=== PATIENT | male | born 1980 | race Caucasian/White ===

== ENCOUNTER 2019-09-18 09:49 | Inpatient (IN) | payer MEDICARE, MEDICAID, SELFPAY ==
[2019-09-18 10:27] VITALS: BP 121/80; PULSE 78; RESP 16; TEMP 36.7; O2SAT 95; BMI 27.4
--- NOTE | 2019-09-18 10:35 | W.ED.PSYCH ---
HPI - Psych General: Chief Complaint: Psychiatric Symptoms Stated Complaint: MHE Time Seen by Provider: 09/18/19 10:35 Source: patient Mode of arrival: ambulatory Limitations: no limitations History of Present Illness: HPI Narrative: Patient is a 38-year-old male who presents to ED today seeking psychiatric evaluation. Patient tells me he has a history of schizophrenia. He has been out of his medications including Seroquel, Haldol, and Invega for the past month. Patient was living in [place] for short amount of time where he had a psychiatrist prescribing those medications. He states he recently moved to [place] so he could live on a farm and be isolated as he is very paranoid and does not do well in large cities. Patient tells me even on the farm he is having paranoia and believing that the people he is living with are trying to hurt him. Patient tells me he is having thoughts of wanting to harm them stating I feel like I need to get to them before they get to me . Patient tells me he is fearful of these thoughts as he is normally very proactive on his mental health. He is also reporting auditory hallucinations. States these were normally fairly well controlled on Seroquel. Patient states his thoughts are out of control . He is not having homicidal ideations. He denies drug use apart from occasional marijuana use. No alcohol use. Associated symptoms: Reports auditory hallucinations and homicidal ideation; Deny visual hallucinations or suicidal ideation Review of Systems Const: Denies: fever(s) or chills Card: Denies: chest pain, palpitations, lightheadedness or syncope Resp: Denies: dyspnea GI: Denies: abdominal pain, nausea, vomiting or diarrhea Skin/Breast: Denies: rash Neuro: Denies: headache(s) Psych: Reports: anxiety, paranoia, auditory hallucinations and homicidal ideation; Denies: visual hallucinations or suicidal ideation Physical Exam Const: COMMON NORMALS: no acute distress, patient oriented x3, alert and well nourished GENERAL APPEARANCE: cooperative and well kempt Resp: COMMON NORMALS: normal respiratory effort and clear to auscultation bilaterally AUSCULTATION: clear to auscultation bilaterally Cardio: COMMON NORMALS: regular rate and regular rhythm RATE: regular rate RHYTHM: regular rhythm Neuro: COMMON NORMALS: patient oriented x3 SENSORIUM/ORIENTATION: Yes alert Psych: COMMON NORMALS: mental status grossly normal, Normal thought process present, cooperative, normal affect, speech normal, activity/motor behavior normal and denies suicidal ideation APPEARANCE: Yes well kempt ATTITUDE: Yes calm ACTIVITY/MOTOR BEHAVIOR: Yes appropriate eye contact and No psychomotor agitation SPEECH: Yes normal speech MOOD & AFFECT: Yes euthymic mood THOUGHT PROCESS: Normal thought process present ATTENTION/CONCENTRATION: Yes attention grossly intact and Yes concentration grossly intact MEMORY/COGNITION: Yes memory grossly intact and Yes cognition grossly intact INSIGHT: Good insight present (Psych) JUDGEMENT: Good judgement present (Psych) MDM - Psych Lab Data: Labs: Lab Results 09/18/19 09/18/19 09/18/19 Range/Units 10:44 11:32 11:32 WBC 5.6 (4.0-10.0) 10^3/ uL RBC 4.66 (4.1-5.3) 10^6/u L Hgb 14.7 (11.7-16.6) g/dL Hct 42.3 (42.0-52.0) % MCV 90.8 (80-94) fL MCH 31.5 (28.0-34.0) pg MCHC 34.8 (30.0-36.0) g/dL RDW 14.2 (12.1-15.1) % Plt Count 213 (130-400) 10^3/c mm MPV 10.0 (7.4-10.4) fL Neut % (Auto) 62.4 % Lymph % (Auto) 30.0 % [place] % (Auto) 6.3 % Eos % (Auto) 0.9 % Baso % (Auto) 0.2 % Neut # (Auto) 3.50 (1.8-7.7) 10^3/u L Lymph # (Auto) 1.7 (0.8-4.8) 10^3/u L [place] # (Auto) 0.4 (0.2-0.9) 10^3/u L Eos # (Auto) 0.1 (0.0-0.8) 10^3/u L Baso # (Auto) 0.0 (0.0-0.1) 10^3/u L Nucleated RBC % (a uto) 0 % Nucleated RBCs # 0.0 /100WBC Sodium 139 (136-145) mmol/L Potassium 4.0 (3.5-5.1) mmol/L Chloride 106 (98-107) mmol/L Carbon Dioxide 22 (22-29) mmol/L Anion Gap 15.0 (5-19) BUN 7 (6-20) mg/dL Creatinine 0.8 (0.7-1.2) mg/dL GFR Calculation 107.1 (90-130) mL/min Glucose 111 (65-115) mg/dL Calculated Osmolal ity 285 (285-295) mOsm/k g Calcium 9.7 (8.5-10.5) mg/dL Total Bilirubin 0.3 (0.15-1.2) mg/dL AST 18 (0-40) U/L ALT 17 (0-41) U/L Alkaline Phosphata se 72 (40-130) IU/L Total Protein 6.8 (6.6-8.7) g/dL Albumin 4.5 (3.5-5.2) g/dL Globulin 2.3 (1.3-4.6) g/dL Salicylates < 0.3 L (3-10) mg/dL Urine Opiates Scre en Negative (Negative) ng/mL Acetaminophen < 5.0 L (10-30) ug/mL Ur Barbiturates Sc reen Negative (Negative) ng/mL Ur Phencyclidine S crn Negative (Negative) ng/mL Ur Amphetamines Sc reen Negative (Negative) ng/mL U Benzodiazepines Scrn Negative (Negative) ng/mL Urine Cocaine Scre en Negative (Negative) ng/mL U Marijuana (THC) Screen Positive H (Negative) ng/mL Ethyl Alcohol < 10 (0-10) mg/dL Discharge Plan Discharge Patient Disposition: Admitted As Inpatient Clinical Impression: Chronic schizophrenia, Paranoia Condition: Stable Prescriptions: No Action No Known Home Medications RF: 0 Coding Level of Care Code ED Engineering Instructor for Chg Fwd Exam Expanded Problem Focused
[2019-09-18 11:16] LABS: Amphetamines Screen Urine Negative (Negative); Barbiturates Screen Urine Negative (Negative); Benzodiazepines Screen Urine Negative (Negative); Cocaine Screen Urine Negative (Negative); Opiate Screen Urine Negative (Negative); PCP Screen Urine Negative (Negative); THC Screen Urine Positive (Negative)
[2019-09-18 11:37] LABS: Basophils % 0.2 %; Eosinophils # 0.1 10^3/uL (0.0-0.8); Eosinophils % 0.9 %; Hematocrit 42.3 % (42.0-52.0); Hemoglobin 14.7 g/dL (11.7-16.6); Lymphocytes # 1.7 10^3/uL (0.8-4.8); Mean Corpuscular HGB Conc 34.8 g/dL (30.0-36.0); Mean Corpuscular Hemoglobin 31.5 pg (28.0-34.0); Mean Corpuscular Volume 90.8 fL (80-94); Monocytes # 0.4 10^3/uL (0.2-0.9); Monocytes % 6.3 %; Neutrophils % 62.4 %; Nucleated Red Blood Cells % 0 %; Platelet Count 213 10^3/cmm (130-400); Red Blood Count 4.66 10^6/uL (4.1-5.3); Red Cell Distribution Width 14.2 % (12.1-15.1); White Blood Count 5.6 10^3/uL (4.0-10.0)
[2019-09-18 11:58] LABS: Alanine Aminotransferase 17 U/L (0-41); Albumin Level 4.5 g/dL (3.5-5.2); Alkaline Phosphatase 72 IU/L (40-130); Aspartate Amino Transferase 18 U/L (0-40); Blood Urea Nitrogen 7 mg/dL (6-20); Calcium 9.7 mg/dL (8.5-10.5); Carbon Dioxide 22 mmol/L (22-29); Chloride 106 mmol/L (98-107); Globulin 2.3 g/dL (1.3-4.6); Glomerular Filtration Rate 107.1 mL/min (90-130); Glucose 111 mg/dL (65-115); Osmolality Calculated 285 mOsm/kg (285-295); Sodium 139 mmol/L (136-145); Total Bilirubin 0.3 mg/dL (0.15-1.2); Total Protein 6.8 g/dL (6.6-8.7)
[2019-09-18 12:10] LABS: Acetaminophen < 5.0 ug/mL (10-30); Alcohol Level < 10 mg/dL (0-10); Salicylate < 0.3 mg/dL (3-10)
--- NOTE | 2019-09-18 13:45 | PC.NURSE ---
Patient has a left artificial leg and it has as reddened area.
[2019-09-18 13:51] VITALS: BP 118/76; PULSE 63; RESP 18; TEMP 36.8; O2SAT 98
--- NOTE | 2019-09-18 13:58 | PC.NURSE ---
\patient has phantom pains in his left leg.
--- NOTE | 2019-09-18 14:09 | PC.NURSE ---
Very painful to walk on his prosthetic. He has irritation to the top medial portion of knee area that is rubbing
[2019-09-18 14:22] VITALS: BP 124/82; PULSE 75; RESP 17; TEMP 37.1; O2SAT 97
--- NOTE | 2019-09-18 14:40 | PC.NURSE ---
applied ABD to end of stump to relieve pressure and wick up moisture from knee area.
[2019-09-18] MEDS: nicotine 2 mg Gum BUCCAL (15:00)
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
[2019-09-18] MEDS: quetiapine 25 mg Tablet PO (16:37)
[2019-09-18] MEDS: LORazepam 0.5 mg Tablet PO (17:32)
[2019-09-18] MEDS: gabapentin 300 mg Capsule PO (21:14)
[2019-09-18 22:00] VITALS: RESP 16
[2019-09-19 06:00] VITALS: BP 85/47; PULSE 59; RESP 17; TEMP 36.8; O2SAT 97
[2019-09-19] MEDS: quetiapine 25 mg Tablet PO (08:13)
[2019-09-19] MEDS: LORazepam 0.5 mg Tablet PO ×2 (08:13→17:09)
[2019-09-19] MEDS: nicotine 2 mg Gum BUCCAL ×3 (08:13→17:09)
[2019-09-19] MEDS: gabapentin 300 mg Capsule PO ×3 (08:13→20:05)
--- NOTE | 2019-09-19 08:13 | PC.NURSE ---
PRN SEROQUEL 25 MG GIVEN PO PER PT C/O STATED ANXIETY
[2019-09-19 13:41] VITALS: BP 91/55; PULSE 68; RESP 18; TEMP 36.9; O2SAT 95
--- NOTE | 2019-09-19 16:05 | P.PN_ITS ---
Subjective NPU Subjective: Interval history: I am doing all right. I think the medication is already helping. I am still working on a place to go. Mental Status Exam MSE Comments: Mental Status Exam: The patient is alert interpersonally engaged male appearing approximately his stated age. His facial hair is well groomed. His head is shaved in a [place]. He has a full arm sleeve tattoo on the left side. He is believed to be a reliable informant to the best of his ability is information provided is internally consistent and consistent with that in the chart. However it is noted that we have no independent sources of information to compare against the story that he tells. Appearance: hygiene is fair; no gross neurological deficits., gait is unremarkable; AIMS=0 Speech: Speech is of normal rate and rhythm and easily understood. Thought processes: Thought processes are abstract. Judgment is adequate for safety. Associations: intact Psychotic processes: There is no indication of guarding or paranoia. There is no attention to the internal stimuli. Auditory and visual hallucinations are denied. Judgment: Insight is fair. Problem solving skills are adequate for safety. Orientation: The patient is oriented to person, place time and situation. Memory: no deficits noted in immediate, intermediate, or remote spheres. Attention: The patient is alert and interpersonally engaged. Language: Verbalizations are coherent. Fund of knowledge: Fund of knowledge is adequate. Affect/Mood: Affect is consistent with a euthymic mood. He denied suicidal ideation Affective range appropriate. Psychosis: perception unimpaired except through cognitive distortion; reality testing intact. Cognition: Level of Consciousness: Awake, Alert, Appropriate and Follows Commands Patient Cognition Impaired: No Ability to Follow Directions: Good Patient Orientation (long list): Person, Place and Time Comprehension Ability: Understands Concepts Hallucination Type: None Delusion Description: Not Present Thought Process: Appropriate Affect: Affect Description: Calm Depressive Symptoms: Increased Anxiety Behavior: Patient Behavior: Cooperative Speech Pattern: Clear Vitals/I&O/Wt Last Vital Signs Temp 98.5 F 09/19/19 13:41 Pulse 68 09/19/19 13:41 Resp 18 09/19/19 13:41 BP 91/55 09/19/19 13:41 Pulse Ox 95 09/19/19 13:41 Weight last 48 hrs Weight 74.843 kg Data NPU : 09/18/19 11:32 09/18/19 11:32 A&P Additional A&P Information Diagnoses: Schizoaffective disorder?paranoid type Assessment: Patient did well to come in for services before his psychosis worsened considerably. It is apparent that the primary goal of the patient was to get restarted back on his medications that had previously been effective. Treatment plan: Due to the psychiatric conditions and treatment listed in the Assessment and Plan - the patient requires continued hospitalization. Will provide a safe and therapeutic environment for patient.. Will continue inpatient treatment to allow for medication adjustment and monitoring. Will continue q15 min safety checks. Hospital day #1: Will restart Seroquel 400 mg at bedtime and gabapentin 300 mg 3 times daily and titrate up from there. He will be given lorazepam as needed and Seroquel 25 mg as needed anxiety. Lorazepam will not be prescribed on discharge. And monitor for medication side effects. The patient is a voluntary admission and there is no indication of imminent danger to self or others at this time. Hospital day #2: I am doing all right. I think the medication is already helping. I am still working on a place to go. Plan: No changes at this time. Monitor patient's mood, sleep, appetite, and behavior closely. Encourage patient to participate in individual and group therapeutic sessions on the [place]. Estimated length of stay 5 days Involuntary Hold Information 96 Hour Hold: 96 Hour Involuntary Admission: No Attestations NPU Medical Necessity Statement*: Patient will remain in the hospital another 2-4 nights for assessment of medication efficacy and tolerability. Coding Level of Care Code Acute Supervisor Drying And Softening for Champ Burden
[2019-09-19 22:00] VITALS: BP 106/62; PULSE 58; RESP 17; TEMP 36.9; O2SAT 98
[2019-09-20] MEDS: acetaminophen 325 mg Tablet 650 MG PO (00:12)
[2019-09-20] MEDS: quetiapine 25 mg Tablet PO ×2 (04:58→11:39)
[2019-09-20] MEDS: nicotine 2 mg Gum BUCCAL ×3 (05:00→17:41)
[2019-09-20 06:00] VITALS: BP 96/45; PULSE 90; RESP 17; TEMP 36.8; O2SAT 97
[2019-09-20] MEDS: gabapentin 300 mg Capsule PO ×3 (08:18→22:36)
[2019-09-20] MEDS: LORazepam 0.5 mg Tablet PO ×2 (08:18→16:53)
--- NOTE | 2019-09-20 08:30 | PM.NPN ---
Subjective NPU Subjective: Interval history: I am having a lot of problems with these hallucinations. I hear voices. I woke up last night in the middle of the night in a panic attack from the voices. I had to go up and take another as needed. Mental Status Exam MSE Comments: Mental Status Exam: The patient is alert interpersonally engaged male appearing approximately his stated age. His facial hair is well groomed. His head is shaved in a [place]. He has a full arm sleeve tattoo on the left side. He is believed to be a reliable informant to the best of his ability is information provided is internally consistent and consistent with that in the chart. However it is noted that we have no independent sources of information to compare against the story that he tells. Appearance: hygiene is fair; no gross neurological deficits., gait is unremarkable; AIMS=0 Speech: Speech is of normal rate and rhythm and easily understood. Thought processes: Thought processes are abstract. Judgment is adequate for safety. Associations: intact Psychotic processes: There is no indication of guarding or paranoia. There is no attention to the internal stimuli. Auditory and visual hallucinations are denied. Judgment: Insight is fair. Problem solving skills are adequate for safety. Orientation: The patient is oriented to person, place time and situation. Memory: no deficits noted in immediate, intermediate, or remote spheres. Attention: The patient is alert and interpersonally engaged. Language: Verbalizations are coherent. Fund of knowledge: Fund of knowledge is adequate. Affect/Mood: Affect is consistent with a euthymic mood. He denied suicidal ideation Affective range appropriate. Psychosis: perception unimpaired except through cognitive distortion; reality testing intact. Cognition: Patient Appearance: Appropriate Level of Consciousness: Awake, Alert, Appropriate and Follows Commands Patient Cognition Impaired: No Ability to Follow Directions: Good Patient Orientation (long list): Person, Place and Time Comprehension Ability: Understands Concepts Hallucination Type: None Delusion Description: Not Present Thought Process: Appropriate Affect: Affect Description: Calm Depressive Symptoms: Increased Anxiety Behavior: Patient Behavior: Cooperative Speech Pattern: Clear Vitals/I&O/Wt Last Vital Signs Temp 98.2 F 09/20/19 06:00 Pulse 90 09/20/19 06:00 Resp 17 09/20/19 06:00 BP 96/45 09/20/19 06:00 Pulse Ox 97 09/20/19 06:00 Weight last 48 hrs Weight 74.843 kg Data NPU : 09/18/19 11:32 09/18/19 11:32 A&P Additional A&P Information Diagnoses: Schizoaffective disorder?paranoid type Assessment: Patient did well to come in for services before his psychosis worsened considerably. It is apparent that the primary goal of the patient was to get restarted back on his medications that had previously been effective. Treatment plan: Due to the psychiatric conditions and treatment listed in the Assessment and Plan - the patient requires continued hospitalization. Will provide a safe and therapeutic environment for patient.. Will continue inpatient treatment to allow for medication adjustment and monitoring. Will continue q15 min safety checks. Hospital day #1: Will restart Seroquel 400 mg at bedtime and gabapentin 300 mg 3 times daily and titrate up from there. He will be given lorazepam as needed and Seroquel 25 mg as needed anxiety. Lorazepam will not be prescribed on discharge. And monitor for medication side effects. The patient is a voluntary admission and there is no indication of imminent danger to self or others at this time. Hospital day #2: I am doing all right. I think the medication is already helping. I am still working on a place to go. Plan: No changes at this time. Hospital day #3: Patient continues to request as needed medication for auditory hallucinations. Plan: Increase Seroquel at bedtime from 400 mg to 600 mg. He is currently awaiting placement though it is largely his responsibility to find a place to go. He acknowledges that it will be another 2 days until social work returns that can help him with that. Monitor patient's mood, sleep, appetite, and behavior closely. Encourage patient to participate in individual and group therapeutic sessions on the [place]. Estimated length of stay 5 days Involuntary Hold Information 96 Hour Hold: 96 Hour Involuntary Admission: No Attestations NPU Medical Necessity Statement*: Patient will remain in the hospital another 2-4 nights for assessment of medication efficacy and tolerability. Coding Level of Care Code Acute Suction Dredge Dumping Supervisor for Champ Burden
--- NOTE | 2019-09-20 11:40 | PC.NURSE ---
Addendum entered by Georgia Casas LPN 09/20/19 13:54: prn med effective no further c/o anxiety, pt watching tv in day room Original Note: PRN SEROQUEL 25 MG GIVEN PO PER PT C/O ANXIETY. PT REQUESTS MED OFTEN. WILL CONT TO MONITOR
[2019-09-20 13:32] VITALS: BP 101/66; PULSE 89; TEMP 36.9
[2019-09-20 22:00] VITALS: BP 122/71; PULSE 65; RESP 20; TEMP 36.9; O2SAT 97
[2019-09-20] MEDS: quetiapine 300 mg Tablet 600 MG PO (22:36)
[2019-09-21] MEDS: nicotine 2 mg Gum BUCCAL ×3 (05:57→21:15)
[2019-09-21] MEDS: quetiapine 25 mg Tablet PO ×2 (05:57→14:53)
[2019-09-21 06:00] VITALS: BP 106/70; PULSE 70; RESP 20; TEMP 36.7; O2SAT 96
[2019-09-21] MEDS: gabapentin 300 mg Capsule PO ×3 (09:02→21:14)
[2019-09-21] MEDS: LORazepam 0.5 mg Tablet PO ×2 (09:02→16:59)
[2019-09-21 14:00] VITALS: BP 102/68; PULSE 18; RESP 18; TEMP 37.2; O2SAT 98
--- NOTE | 2019-09-21 14:53 | PC.NURSE ---
PRN SEROQUEL SEROQUEL 25MG PO PER PATIENT C/O ANXIETY. WILL CONTINUE TO MONITOR FOR MEDICATION EFFECTIVENESS.
--- NOTE | 2019-09-21 16:00 | PC.NURSE ---
PRN SEROQUEL FOLLOW UP MEDICATION EFFECTIVE. NO FURTHER C/O ANXIETY.
--- NOTE | 2019-09-21 16:36 | P.PN_ITS ---
Subjective NPU Subjective: Interval history: The patient is feeling calm, comfortable and affirms that his medications are having a good effect. He is looking forward to the correction. He thinks he is [facility] [place] [facility]. Medications: Reviewed: Yes Medication Review Details: Current Medications Acetaminophen (Tylenol) 650 mg PO Q4H PRN PRN Reason: MILD PAIN Last Admin: 09/20/19 00:12 Dose: 650 mg Documented by: Benztropine Mesylate (Cogentin) 1 mg PO BID PRN PRN Reason: Mild Extrapyramidal symptoms Camphor/Menthol/Phenol (Blistex) 1 applic TOPICAL Q1H PRN PRN Reason: DRYNESS Diphenhydramine HCl (Benadryl) 50 mg IM ONCE PRN PRN Reason: Severe Extrapyramidal Symptoms Diphenhydramine HCl (Benadryl) 50 mg IM Q4H PRN PRN Reason: Severe Aggression Gabapentin (Neurontin) 300 mg PO TID [facility] Last Admin: 09/21/19 14:53 Dose: 300 mg Documented by: Haloperidol (Haldol) 5 mg PO Q4H PRN PRN Reason: AGITATION Haloperidol Lactate (Haldol Inj) 5 mg IM Q4H PRN PRN Reason: Severe Aggression Hydroxyzine Pamoate (Vistaril) 50 mg PO Q6H PRN PRN Reason: ANXIETY Loperamide HCl (Imodium Capsule) 2 mg PO Q6H PRN PRN Reason: DIARRHEA Lorazepam (Ativan) 2 mg IM Q4H PRN PRN Reason: Severe Aggression Lorazepam (Ativan) 0.5 mg PO BID [facility] Last Admin: 09/21/19 09:02 Dose: 0.5 mg Documented by: Nicotine (Nicoderm 21 Mg Patch) 1 patch TRANSDERMA DAILY PRN PRN Reason: NICOTINE WITHDRAWAL Nicotine Polacrilex (Nicorette) 2 mg BUCCAL Q2H PRN PRN Reason: NICOTINE WITHDRAWAL Last Admin: 09/21/19 14:53 Dose: 2 mg Documented by: Olanzapine (Zyprexa Zydis) 5 mg PO Q4H PRN PRN Reason: Agitation/Psychosis Ondansetron HCl (Zofran) 4 mg PO Q6H PRN PRN Reason: NAUSEA AND VOMITING Quetiapine Fumarate (Seroquel) 25 mg PO Q6H PRN PRN Reason: ANXIETY Last Admin: 09/21/19 14:53 Dose: 25 mg Documented by: Quetiapine Fumarate (Seroquel) 600 mg PO BEDTIME ELICIA Last Admin: 09/20/19 22:36 Dose: 600 mg Documented by: Trazodone HCl (Desyrel) 50 mg PO BEDTIME PRN PRN Reason: SLEEP Mental Status Exam MSE Comments: The patient wheels in, clean and neat, with his hair combed back. Mood is cheerful and affect is appropriate. Thought processes are integrated and free of any racing, blocking or looseness of association. Speech is of normal rate and volume, without dysarthria, aprosody or pressure. Cognitive functions appear to be intact; he is clearly able to plan for the future. Insight and judgment are good. He denies suicidal or homicidal ideation, plan or intent. Vitals/I&O/Wt Last Vital Signs Temp 98.9 F 09/21/19 14:00 Pulse 18 L 09/21/19 14:00 Resp 18 09/21/19 14:00 BP 102/68 09/21/19 14:00 Pulse Ox 98 09/21/19 14:00 Weight last 48 hrs Weight 173 lb 6.4 oz Physical Exam Narrative: EXAM NARRATIVE: Const: COMMON NORMALS: no acute distress, patient oriented x3, alert and well nourished GENERAL APPEARANCE: cooperative and well kempt Resp: COMMON NORMALS: normal respiratory effort and clear to auscultation bilaterally AUSCULTATION: clear to auscultation bilaterally Cardio: COMMON NORMALS: regular rate and regular rhythm RATE: regular rate RHYTHM: regular rhythm Neuro: COMMON NORMALS: patient oriented x3 SENSORIUM/ORIENTATION: Yes alert Psych: COMMON NORMALS: mental status grossly normal, Normal thought process present, cooperative, normal affect, speech normal, activity/motor behavior normal and denies suicidal ideation APPEARANCE: Yes well kempt ATTITUDE: Yes calm ACTIVITY/MOTOR BEHAVIOR: Yes appropriate eye contact and No psychomotor agitation SPEECH: Yes normal speech MOOD & AFFECT: Yes euthymic mood THOUGHT PROCESS: Normal thought process present ATTENTION/CONCENTRATION: Yes attention grossly intact and Yes concentration grossly intact MEMORY/COGNITION: Yes memory grossly intact and Yes cognition grossly intact INSIGHT: Good insight present (Psych) JUDGEMENT: Good judgement present (Psych) Data NPU : 09/18/19 11:32 09/18/19 11:32 A&P Assessment and plan (1) Paranoia: Now that the patient is back on his meds, the paranoia has faded. Status: Acute (2) Chronic schizophrenia: With medication the patient is difficult to diagnose as schizophrenic. Status: Acute Involuntary Hold Information 96 Hour Hold: 96 Hour Involuntary Admission: No Attestations NPU Medical Necessity Statement*: I anticipate 2-3 midnights additional hospitalization Time Spent in Patient Care: Greater than 35 minutes (>than 50% of time spent in counselling and/or direct pt care on unit) . 45 minutes Coding Level of Care Code Acute Mortgage Loan Processor for Champ Burden Diagnoses Paranoia F22 Chronic schizophrenia F20.9
[2019-09-21] MEDS: quetiapine 300 mg Tablet 600 MG PO (21:14)
[2019-09-21 22:00] VITALS: BP 99/56; PULSE 59; RESP 20; TEMP 37.1; O2SAT 96
[2019-09-22 06:00] VITALS: BP 103/64; PULSE 80; RESP 20; TEMP 36.6; O2SAT 97
[2019-09-22] MEDS: acetaminophen 325 mg Tablet 650 MG PO ×2 (06:08→13:38)
[2019-09-22] MEDS: quetiapine 25 mg Tablet PO (06:08)
[2019-09-22] MEDS: nicotine 2 mg Gum BUCCAL ×4 (06:08→17:13)
--- NOTE | 2019-09-22 07:01 | PC.NURSE ---
PRN SEROQUEL ADMINISTERED SEROQUEL 25 MG PO FOR PT C/O INCREASING ANXIETY. WILL MONITOR FOR MEDICATION EFFECTIVENESS.
[2019-09-22] MEDS: LORazepam 0.5 mg Tablet PO ×2 (08:27→17:09)
[2019-09-22] MEDS: gabapentin 300 mg Capsule PO ×3 (08:27→21:19)
--- NOTE | 2019-09-22 09:52 | P.PN_ITS ---
Subjective NPU Subjective: Interval history: The patient says he feels much calmer now. He is pending establishment of a place to live. He cannot go out on the streets. He has however Mental Status Exam MSE Comments: This is a 38-year-old male who presents at his stated age. Mood is anxious but affect is appropriate to his mood. Thought processes are integrated and free of any racing, blocking or looseness of association. There is no evidence of psychosis, such as but not limited to hallucinations, delusions or ideas of reference. Speech is of normal rate and volume, without dysarthria, aprosody or pressure. Cognitive functions appear to be intact and sufficient to life in a mcc. Insight and judgment is intact. He denies suicidal or homicidal ideation, plan or intent. Vitals/I&O/Wt Last Vital Signs Temp 97.8 F 09/22/19 06:00 Pulse 80 09/22/19 06:00 Resp 20 H 09/22/19 06:00 BP 103/64 09/22/19 06:00 Pulse Ox 97 09/22/19 06:00 Weight last 48 hrs Weight 173 lb 6.4 oz Physical Exam 2 Narrative: EXAM NARRATIVE: Const: COMMON NORMALS: no acute distress, patient oriented x3, alert and well nourished GENERAL APPEARANCE: cooperative and well kempt Resp: COMMON NORMALS: normal respiratory effort and clear to auscultation bilaterally AUSCULTATION: clear to auscultation bilaterally Cardio: COMMON NORMALS: regular rate and regular rhythm RATE: regular rate RHYTHM: regular rhythm Neuro: COMMON NORMALS: patient oriented x3 SENSORIUM/ORIENTATION: Yes alert Psych: COMMON NORMALS: mental status grossly normal, Normal thought process present, cooperative, normal affect, speech normal, activity/motor behavior normal and denies suicidal ideation APPEARANCE: Yes well kempt ATTITUDE: Yes calm ACTIVITY/MOTOR BEHAVIOR: Yes appropriate eye contact and No psychomotor agitation SPEECH: Yes normal speech MOOD & AFFECT: Yes euthymic mood THOUGHT PROCESS: Normal thought process present ATTENTION/CONCENTRATION: Yes attention grossly intact and Yes concentration grossly intact MEMORY/COGNITION: Yes memory grossly intact and Yes cognition grossly intact INSIGHT: Good insight present (Psych) JUDGEMENT: Good judgement present (Psych) Data NPU : 09/18/19 11:32 09/18/19 11:32 A&P Assessment and plan (1) Chronic schizophrenia: The patient is sufficiently stabilized that he can be discharged safely to a group present as soon as a slot can be found. Status: Acute Involuntary Hold Information 96 Hour Hold: 96 Hour Involuntary Admission: No Attestations NPU Medical Necessity Statement*: I anticipate 2-3 midnights additional Time Spent in Patient Care: Greater than 35 minutes (>than 50% of time spent in counselling and/or direct pt care on unit) . 45 minutes Coding Level of Care Code Acute Blocker And Cutter Contact Lens for Champ Burden Diagnoses Chronic schizophrenia F20.9
[2019-09-22 14:00] VITALS: BP 107/71; PULSE 74; RESP 20; TEMP 36.8; O2SAT 97
[2019-09-22] MEDS: calcium carbonate 500 mg Chew Tablet PO (17:09)
--- NOTE | 2019-09-22 17:15 | PC.SOCIAL ---
important message was provided
[2019-09-22 21:04] VITALS: BP 96/53; PULSE 75; RESP 13; TEMP 36.8; O2SAT 97
[2019-09-22] MEDS: quetiapine 300 mg Tablet 600 MG PO (21:19)
[2019-09-23] MEDS: nicotine 2 mg Gum BUCCAL ×5 (03:37→21:47)
[2019-09-23] MEDS: quetiapine 25 mg Tablet PO ×2 (03:37→12:15)
--- NOTE | 2019-09-23 03:41 | PC.NURSE ---
PRN SEROQUEL PT REQUESTING ANXIETY MEDICATION, SEROQUEL 25MG PO ADMINISTERED. WILL MONITOR FOR MEDICATION EFFECTIVENESS.
[2019-09-23 06:00] VITALS: BP 102/66; PULSE 70; RESP 14; TEMP 36.7; O2SAT 95
[2019-09-23] MEDS: LORazepam 0.5 mg Tablet PO ×2 (08:34→16:55)
[2019-09-23] MEDS: gabapentin 300 mg Capsule PO ×3 (08:34→21:47)
--- NOTE | 2019-09-23 12:15 | PC.NURSE ---
Addendum entered by Georgia Casas LPN 09/23/19 14:20: prn med effective no further c/o anxiety Original Note: PRN SEROQUEL 25 MG GIVEN PO PER PT C/O STATED ANXIETY. NO OUTWARD S/S OF ANXIETY NOTED. MOOD IS CALM. WILL CONT TO MONITOR
[2019-09-23 13:49] VITALS: BP 110/69; PULSE 81; RESP 18; TEMP 37.2; O2SAT 98
--- NOTE | 2019-09-23 14:01 | PM.NPN ---
Subjective NPU Subjective: Interval history: Mr. Brandon is feeling better. He is got his prosthesis on his able to walk. I have consulted with the nursing staff and the landscape architect and planner for this patient. She has paperwork into a local [facility] and is awaiting a response from the staffing administrator, who unfortunately, especially for her, is at the dentist office. We received a reply from the facility and I will accept him. We can undertake to transfer the patient to this facility. Vitals/I&O/Wt Last Vital Signs Temp 98.9 F 09/23/19 13:49 Pulse 81 09/23/19 13:49 Resp 18 09/23/19 13:49 BP 110/69 09/23/19 13:49 Pulse Ox 98 09/23/19 13:49 Data NPU : 09/18/19 11:32 09/18/19 11:32 Involuntary Hold Information 96 Hour Hold: 96 Hour Involuntary Admission: No Coding Level of Care Code Acute Organic Extractions Technician for Champ Burden
--- NOTE | 2019-09-23 14:15 | PM.NDC ---
Diagnoses at Discharge Discharge Diagnosis (1) Chronic schizophrenia: Status: Acute Problem details: Patient is presently asymptomatic. Reason for Visit Reason for Visit: MHE Hospital Course Hospital Course The patient has responded well to pharmacotherapy and millieu. [facility]. The patient is stabilized and awaiting placement. There was a review phone call yesterday and, not surprisingly his care was disallowed. Involuntary Hold Information 96 Hour Hold: 96 Hour Involuntary Admission: No Mental Status Exam MSE Comments: This is a 38-year-old male who presents at his stated age. Mood is upbeat and affect is appropriate. Thought processes are integrated and free of any racing, blocking or looseness of association. There is no evidence of psychosis, such as but not limited to hallucinations, delusions or ideas of reference. Speech is of normal rate and volume, without dysarthria, aprosody or pressure. Cognitive functions appear to be average and intact. Insight and judgment are strengthening. He is eager to transfer to the [facility] where he has been accepted. He denies any suicidal or homicidal ideation, plan or intent. Physical Exam Narrative: EXAM NARRATIVE: Const: COMMON NORMALS: no acute distress, patient oriented x3, alert and well nourished GENERAL APPEARANCE: cooperative and well kempt Resp: COMMON NORMALS: normal respiratory effort and clear to auscultation bilaterally AUSCULTATION: clear to auscultation bilaterally Cardio: COMMON NORMALS: regular rate and regular rhythm RATE: regular rate RHYTHM: regular rhythm Neuro: COMMON NORMALS: patient oriented x3 SENSORIUM/ORIENTATION: Yes alert Psych: COMMON NORMALS: mental status grossly normal, Normal thought process present, cooperative, normal affect, speech normal, activity/motor behavior normal and denies suicidal ideation APPEARANCE: Yes well kempt ATTITUDE: Yes calm ACTIVITY/MOTOR BEHAVIOR: Yes appropriate eye contact and No psychomotor agitation SPEECH: Yes normal speech MOOD & AFFECT: Yes euthymic mood THOUGHT PROCESS: Normal thought process present ATTENTION/CONCENTRATION: Yes attention grossly intact and Yes concentration grossly intact MEMORY/COGNITION: Yes memory grossly intact and Yes cognition grossly intact INSIGHT: Good insight present (Psych) JUDGEMENT: Good judgement present (Psych) Discharge Data Data Completed and Pending: Pending at discharge Category Date Time Status Lipid Panel NOW Lab 09/23/19 14:04 Received Vitals: Last Vital Signs Temp 98.9 F 09/23/19 13:49 Pulse 81 09/23/19 13:49 Resp 18 09/23/19 13:49 BP 110/69 09/23/19 13:49 Pulse Ox 98 09/23/19 13:49 Discharge Plan Discharge Patient Disposition: Home, Self-Care Condition: Stable Prescriptions: New quetiapine 25 mg Tablet 25 mg PO Q6H PRN (Reason: Anxiety) 30 Days Qty: 60 RF: 1 quetiapine 300 mg Tablet 600 mg PO BEDTIME 30 Days Qty: 60 RF: 1 gabapentin 300 mg Capsule 300 mg PO TID 30 Days Qty: 90 RF: 1 Discharge Orders: Discharge Order (Routine); Ordered 09/24/19 Ordered By: Tyson Mehta Referrals: [facility] [Outside] - 1-3 days Discharge Diet: Usual diet Discharge Activity: Increase activity as tolerated Discharge Attestations NPU Time Spent in Discharge Care*: greater than 30 min Specific Discharge Activities: Specific discharge activities: educating patient, discussing with skilled nursing case manager/social workers/dc planners, documenting/other paperwork and evaluating patient/reviewing data Other discharge activites (optional): Organizing discharge medications. Establishing preferred pharmacy in [place] Status at Discharge: Cognitive status at discharge: cognitively intact, Behavioral status at discharge: cooperative, Functional status at discharge: other assisted ambulation (Patient has prosthesis on the left lower leg.) Overall status at discharge: patient is back to baseline Coding Level of Care Code Acute Telegraphic Service Dispatcher for Champ Burden Diagnoses Chronic schizophrenia F20.9
--- NOTE | 2019-09-23 14:42 | PM.NPN ---
Subjective NPU Subjective: Interval history: The patient is much brighter today. Even better, our application on his behalf to [facility] has been accepted and they will be able to take him in the morning. He is free of psychotic symptoms and mood is upbeat. He is ready to go tomorrow. Medications: Reviewed: Yes Medication Review Details: Current Medications Acetaminophen (Tylenol) 650 mg PO Q4H PRN PRN Reason: MILD PAIN Last Admin: 09/22/19 13:38 Dose: 650 mg Documented by: Benztropine Mesylate (Cogentin) 1 mg PO BID PRN PRN Reason: Mild Extrapyramidal symptoms Calcium Carbonate (Tums) 500 mg PO Q4H PRN PRN Reason: INDIGESTION Last Admin: 09/22/19 17:09 Dose: 500 mg Documented by: Camphor/Menthol/Phenol (Blistex) 1 applic TOPICAL Q1H PRN PRN Reason: DRYNESS Diphenhydramine HCl (Benadryl) 50 mg IM ONCE PRN PRN Reason: Severe Extrapyramidal Symptoms Diphenhydramine HCl (Benadryl) 50 mg IM Q4H PRN PRN Reason: Severe Aggression Gabapentin (Neurontin) 300 mg PO TID [facility] Last Admin: 09/23/19 14:13 Dose: 300 mg Documented by: Haloperidol (Haldol) 5 mg PO Q4H PRN PRN Reason: AGITATION Haloperidol Lactate (Haldol Inj) 5 mg IM Q4H PRN PRN Reason: Severe Aggression Hydroxyzine Pamoate (Vistaril) 50 mg PO Q6H PRN PRN Reason: ANXIETY Loperamide HCl (Imodium Capsule) 2 mg PO Q6H PRN PRN Reason: DIARRHEA Lorazepam (Ativan) 2 mg IM Q4H PRN PRN Reason: Severe Aggression Lorazepam (Ativan) 0.5 mg PO BID [facility] Last Admin: 09/23/19 08:34 Dose: 0.5 mg Documented by: Nicotine (Nicoderm 21 Mg Patch) 1 patch TRANSDERMA DAILY PRN PRN Reason: NICOTINE WITHDRAWAL Nicotine Polacrilex (Nicorette) 2 mg BUCCAL Q2H PRN PRN Reason: NICOTINE WITHDRAWAL Last Admin: 09/23/19 12:15 Dose: 2 mg Documented by: Olanzapine (Zyprexa Zydis) 5 mg PO Q4H PRN PRN Reason: Agitation/Psychosis Ondansetron HCl (Zofran) 4 mg PO Q6H PRN PRN Reason: NAUSEA AND VOMITING Quetiapine Fumarate (Seroquel) 25 mg PO Q6H PRN PRN Reason: ANXIETY Last Admin: 09/23/19 12:15 Dose: 25 mg Documented by: Quetiapine Fumarate (Seroquel) 600 mg PO BEDTIME ELICIA Last Admin: 09/22/19 21:19 Dose: 600 mg Documented by: Trazodone HCl (Desyrel) 50 mg PO BEDTIME PRN PRN Reason: SLEEP Mental Status Exam MSE Comments: This is a 38-year-old male who presents at his stated age. Mood is upbeat and affect is appropriate. Thought processes are integrated and free of any racing, blocking or looseness of association. There is no evidence of psychosis, such as but not limited to hallucinations, delusions or ideas of reference. Speech is of normal rate and volume, without dysarthria, aprosody or pressure. Cognitive functions appear to be average and intact. Insight and judgment are strengthening. He is eager to transfer to the [facility] where he has been accepted. He denies any suicidal or homicidal ideation, plan or intent. Vitals/I&O/Wt Last Vital Signs Temp 98.9 F 09/23/19 13:49 Pulse 81 09/23/19 13:49 Resp 18 09/23/19 13:49 BP 110/69 09/23/19 13:49 Pulse Ox 98 09/23/19 13:49 Data NPU : 09/18/19 11:32 09/18/19 11:32 A&P Assessment and plan (1) Chronic schizophrenia: The patient is greatly improved on pharmacotherapy, to which she is responded very well. Status: Acute Involuntary Hold Information 96 Hour Hold: 96 Hour Involuntary Admission: No Attestations NPU Medical Necessity Statement*: I believe we can transfer him to the residential care facility in the morning. Time Spent in Patient Care: Greater than 35 minutes (>than 50% of time spent in counselling and/or direct pt care on unit). 60 minutes Coding Level of Care Code Acute Systems Security Analyst for g Fwd Diagnoses Chronic schizophrenia F20.9
[2019-09-23 14:49] LABS: Chol HDL Ratio 7.26 mg/dL (1.0-5.00); Cholesterol 247 mg/dL (0-200); HDL Cholesterol 34 mg/dL (60-100); Triglycerides 480 mg/dL (0-150)
[2019-09-23 21:10] VITALS: BP 97/61; PULSE 67; RESP 20; TEMP 36.7; O2SAT 97
[2019-09-23] MEDS: quetiapine 300 mg Tablet 600 MG PO (21:48)
[2019-09-24 01:05] LABS: LDL Cholesterol Direct 124 mg/dL (0-100)
[2019-09-24] MEDS: acetaminophen 325 mg Tablet 650 MG PO (03:26)
[2019-09-24 06:00] VITALS: BP 94/66; PULSE 62; RESP 20; TEMP 36.7; O2SAT 97
[2019-09-24] MEDS: quetiapine 25 mg Tablet PO (07:13)
[2019-09-24] MEDS: nicotine 2 mg Gum BUCCAL (07:13)
[2019-09-24] MEDS: LORazepam 0.5 mg Tablet PO (08:49)
[2019-09-24] MEDS: gabapentin 300 mg Capsule PO (08:49)
[2019-09-24 09:32] VITALS: BP 94/66; PULSE 62; RESP 20; TEMP 36.7; O2SAT 97
== END 2019-09-24 11:15 | disposition home or self-care (01) | DRG 885 ==
LOC: ER 12:45 → NP 13:06
PROVIDERS: Physician Assistant; Admitting Provider Psychiatry & Neurology Psychiatry; Visit Provider Psychiatry & Neurology Psychiatry
DX: F20.9 Schizophrenia, unspecified (principal); F15.10 Other stimulant abuse, uncomplicated; Z59.0 Homelessness; Z91.5 Personal history of self-harm
CPT/HCPCS: 12345; 36415; 80053; 80061; 80306; 80307; 83721; 85025; 99284

== ENCOUNTER → 2019-10-07 08:03 | Outpatient (BNVA) | payer MEDICARE, MEDICAID, SELFPAY | PROVIDERS: Visit Provider Psychiatry & Neurology Psychiatry | DX: F20.9 Schizophrenia, unspecified (principal); F17.200 Nicotine dependence, unspecified, uncomplicated; F43.12 Post-traumatic stress disorder, chronic | CPT/HCPCS: 99204 ==

== ENCOUNTER → 2020-02-17 07:45 | Outpatient (BNVA) | payer MEDICARE, MEDICAID, SELFPAY | PROVIDERS: Visit Provider Psychiatry & Neurology Psychiatry | DX: F43.12 Post-traumatic stress disorder, chronic (principal); F17.200 Nicotine dependence, unspecified, uncomplicated; F20.9 Schizophrenia, unspecified | CPT/HCPCS: 99214 ==

== ENCOUNTER → 2020-04-06 08:23 | Outpatient (BNVA) | payer MEDICARE, MEDICAID, SELFPAY | PROVIDERS: Visit Provider Psychiatry & Neurology Psychiatry | DX: F43.12 Post-traumatic stress disorder, chronic (principal); F17.200 Nicotine dependence, unspecified, uncomplicated; F20.9 Schizophrenia, unspecified | CPT/HCPCS: 99213 ==

== ENCOUNTER → 2020-06-29 09:09 | Outpatient (BNVA) | payer MEDICARE, MEDICAID, SELFPAY | PROVIDERS: Visit Provider Psychiatry & Neurology Psychiatry | DX: F43.12 Post-traumatic stress disorder, chronic (principal); F20.9 Schizophrenia, unspecified; F17.200 Nicotine dependence, unspecified, uncomplicated | CPT/HCPCS: 99214 ==

== ENCOUNTER 2021-03-23 18:52 | Inpatient (IN) | payer MEDICARE, SELFPAY ==
[2021-03-23 18:53] VITALS: BMI 26.6
--- NOTE | 2021-03-23 18:55 | W.ED.GENADLT ---
HPI - General Adult General: Chief complaint: Psychiatric Symptoms Stated complaint: PSYCH Time Seen by Provider: 03/23/21 18:52 History of Present Illness: HPI narrative: HPI: [40]yo patient w/ hx of psychosis presenting for delusion. Patient thinks that he is being chased by other people and cannot take care of himself. On arrival, the patient is AAOx3 and cooperative with my evaluation. No focal complaints of chest pain, shortness of breath, palpitations, N/V, focal GI/ complaints. Currently denies SI/HI. No complaints of hallucinations. +meth use recently. Onset: acute Duration: ongoing Location: home Severity: severe Associated symptoms: Deny chest pain, dyspnea, nausea, rash, palpitations or vomiting Review of Systems Const: Denies: fever(s) or chills Eyes: Denies: change in vision ENMT: Denies: mouth pain Card: Denies: chest pain or palpitations Resp: Denies: dyspnea or non-productive cough GI: Denies: abdominal pain, nausea, vomiting or diarrhea : Denies: dysuria Musc: Denies: extremity pain Skin/Breast: Denies: rash or new lesions Neuro: Denies: weakness in extremities Psych: Reports: other (agitated mood and psychosis) Dain/Lymph: Denies: easy bruising PFSH ED PFSH: Medical History Psychosis Family History Denies family history of CAD (coronary artery disease) Cancer Social History (Updated 03/23/21 @ 19:22 by Karthikeyan Aquino MD) Smoking and tobacco status: never smoked Alcohol intake: never Substance/Drug Use: current Other substance/drug use details: meth Current gender identity: Male Physical Exam Const: COMMON NORMALS: alert HENMT: COMMON NORMALS: atraumatic HEAD & SCALP: atraumatic MOUTH: moist mucous membranes not abnormal Eye: COMMON NORMALS: EOMs intact bilaterally and conjunctivae normal CONJUNCTIVA: Yes conjunctivae normal Neck/C-Spine: COMMON NORMALS: full ROM and supple Resp: COMMON NORMALS: normal respiratory effort and clear to auscultation bilaterally AUSCULTATION: clear to auscultation bilaterally Cardio: COMMON NORMALS: regular rate RATE: regular rate GI: COMMON NORMALS: Soft to palpation and non-tender PALPATION: Yes Soft to palpation Extremity: COMMON NORMALS: full ROM Neuro: SENSORIUM/ORIENTATION: Yes alert MOTOR EXAM: No Abnormal motor strength present and Other motor observations present (no focal motor deficits) Psych: COMMON NORMALS: negative for speech normal (presssured speech) SPEECH: No normal speech (presssured speech) MOOD & AFFECT: Yes Other affect and mood findings present (non linear thoughts) JUDGEMENT: judgment not good MDM - General Adult MDM Narrative: Medical decision making narrative: [40]yo patient w/ hx of psychosis presenting for acute psychosis. HDS, exam within normal limit Thoughts are non linear and non organized, and the patient has no AH/VH/SI/HI. +meth use recently. Clinically the patient displays no overt toxidrome; patient is is well appearing, with low suspicion for toxic ingestion given history and exam. Symptoms unlikely 2/2 anemia, hypothyroidism, infection, or ICH. Workup: CBC, CMP, Lipase, salicylate/tylenol, UDS Lab findings: wnl [7:30pm] On reassessment, labs and workup wnl. Patient is hemodynamically stable with no acute medical complaints. Case discussed with psychiatric provider Dr. Vizcarra at [facility] psych inpatient with recommendation for admission. Patient received 300mg of IM ketamine and haldol/benadryl/ativan for sedation. Disposition: Psych Discharge Plan Discharge Patient Disposition: Admitted As Inpatient Admit Provider: Nakul Vizcarra Clinical Impression: Psychosis Condition: Stable Coding Level of Care Code ED Gifted Program Teacher for Chg Fwd Exam Comprehensive
[2021-03-23] MEDS: diphenhydrAMINE 50 mg/mL SDV 1mL IM (19:42)
[2021-03-23] MEDS: LORazepam 2 mg/mL INJ 1 mL IM (19:45)
[2021-03-23] MEDS: haloperidol inj 5 mg/mL INJ 1 mL IVP (19:45)
[2021-03-23 21:50] VITALS: BP 170/100; PULSE 114; RESP 30; O2SAT 98
[2021-03-23 22:27] VITALS: BP 158/88; PULSE 98; RESP 18; TEMP 36.8; O2SAT 98
[2021-03-23 22:33] LABS: Blood Urea Nitrogen 7 mg/dL (6-20); Carbon Dioxide 22 mmol/L (22-29); Chloride 106 mmol/L (98-107); Free T4 Free Thyroxine 1.17 ng/dL (0.82-1.77); Glomerular Filtration Rate 92.5 mL/min (90-130); Glucose 101 mg/dL (65-115); Osmolality Calculated 290 mOsm/kg (285-295); Sodium 141 mmol/L (136-145); Thyroid Stimulating Hormone 3.01 uIU/mL (0.27-4.20)
[2021-03-23 22:35] LABS: Acetaminophen < 5.0 ug/mL (10-30); Salicylate < 0.3 mg/dL (3-10)
[2021-03-23 22:36] LABS: Anion Gap 17.1 (5-19); Potassium 4.1 mmol/L (3.5-5.1)
[2021-03-24 01:24] VITALS: BP 171/100; RESP 31
--- NOTE | 2021-03-24 03:30 | PC.NURSE ---
pt given all medications while in the ER IM. pt non complaint on all things. 'you do not work for the hospital' 'get me someone who knows what they are doing.'
[2021-03-24 05:32] VITALS: BP 112/72; PULSE 68; RESP 17; TEMP 36.8; O2SAT 97
--- NOTE | 2021-03-24 08:25 | PHA.FALL ---
A Pharmacy Consult Was Conducted For Rafa Brandon Due To: Schrader Fall Scale Risk Level: High Fall Risk On 03/24/21 08:00 And A Medication Fall Risk Score Greater Than 10. The Recommendations Are As Follows: the medications listed below have sedation/somnolence/dizziness adverse reactions. Concomitant administration of these medications may lead to an increased/compounded risk of falls and it is recommended to avoid administration together if possible. Many of the offending medications are listed as PRN therefore extra caution must be taken when the need arises for a particular agent. Benztropine PRN: confusion Diphenhydramine PRN: dizziness, sedation fluoxetine: asthenia, dizziness, insomnia, somnolence, tremor haldol prn: somnolence Hydroxyzine PRN: somnolence Loperamide PRN: somnolence, dizziness Lorazepam PRN: confusion, dizziness, somnolence Olanzapine PRN: dizziness, somnolence Quetiapine: somnolence Trazodone: somnolence
[2021-03-24] MEDS: fluoxetine 20 mg Capsule PO (10:14)
[2021-03-24] MEDS: hyDROXYzine 25 mg Capsule 100 MG PO (10:14)
[2021-03-24 10:26] LABS: Basophils % 0.5 %; Eosinophils # 0.1 10^3/uL (0.0-0.8); Eosinophils % 2.4 %; Hematocrit 42.6 % (42.0-52.0); Hemoglobin 14.7 g/dL (11.7-16.6); Lymphocytes # 1.6 10^3/uL (0.8-4.8); Lymphocytes % 37.8 %; Mean Corpuscular HGB Conc 34.5 g/dL (30.0-36.0); Mean Corpuscular Hemoglobin 31.2 pg (28.0-34.0); Mean Corpuscular Volume 90.4 fl (80-94); Mean Platelet Volume 9.9 fL (7.4-10.4); Monocytes # 0.3 10^3/uL (0.2-0.9); Neutrophils # 2.22 10^3/uL (1.8-7.7); Neutrophils % 53.1 %; Nucleated Red Blood Cells % 0 %; Platelet Count 196 10^3/cmm (130-400); Red Blood Count 4.71 10^6/uL (4.1-5.3); Red Cell Distribution Width 12.8 % (12.1-15.1); White Blood Count 4.2 10^3/uL (4.0-10.0)
--- NOTE | 2021-03-24 10:34 | W.PM.NPUH&PS ---
Providers/Chief Complaint Admitting Physician: Nakul Vizcarra MD Chief Complaint: PSYCH HPI NPU History of Present Illness Rafa Brandon is a 40 year old male who was seen in the emergency department with the following report: Time Seen by Provider: 03/23/21 18:52 History of Present Illness: HPI narrative: HPI: [40]yo patient w/ hx of psychosis presenting for delusion. Patient thinks that he is being chased by other people and cannot take care of himself. On arrival, the patient is AAOx3 and cooperative with my evaluation. No focal complaints of chest pain, shortness of breath, palpitations, N/V, focal GI/ complaints. Currently denies SI/HI. No complaints of hallucinations. +meth use recently. He was so agitated that he needed ketamine as well as a B-52 injection. In for a psychiatric evaluation by Dr. Montesinos in 2019 with the following report: [facility] [place] History and Physical Time In: 02:15 Time Out: 02:50 Chief Complaint: I need my medications History of Present Illness: This is a 38-year-old male with a history of schizoaffective disorder and chronic PTSD. He describes a history that is consistent for schizoaffective disorder and that he had 10-12 psychiatric admissions, the first of which was 9 months of length when he was first diagnosed around age [age] years old.. Clear that his symptoms have been largely precipitated by substance use. He tells me he started using LSD when he was 12 years old. He says until age [age] years old he was using acid on a daily basis 5 to 6 years at a time. He tells me that he started using methamphetamine around age [age] years old and used intravenously on a daily basis heavily for at least 5 years. He says his first admission coincided with heavy methamphetamine use, and included auditory hallucinations, paranoid delusions, and suicidal ideations. He tells me that his subsequent 10-12 psychiatric admissions have been up to 2 weeks in length and usually coincide with him going off of medications and decompensating with more paranoid ideations and hallucinations and suicidal thoughts. He tells me that while his symptoms may been precipitated by the methamphetamine use, he has been sober from meth for a number of years and his symptoms have persisted. He denies any recent substance use for at least the last few years. He was recently admitted and restarted on his medications but he says that he does better when he is on 800 mg of Seroquel daily but that it was reduced due to his cholesterol and triglyceride issue. I reviewed the labs and I agree that his triglycerides are very high. However, given the fact that he decompensates rapidly I feel that he really needs to treat his psychotic disorder and that the lipidemia will have to be treated subsequently. Currently he denies any suicidal ideations says he feels a little pressured and stressed but overall is doing well. He recently moved into [facility] which is an assisted living facility and has been there for 2 weeks now and says is going well. He also has a history of trauma growing up that he did not wish to discuss today but he describes having symptoms of nightmares and flashbacks periodically throughout his life. History Past Psychiatric History: 10-12 admissions with the longest being 9 months in length around age [age] years old. He has had 3 suicide attempts by overdose on pills and alcohol combined but denies other self-harm. Family History: Father had bipolar disorder mother had schizophrenia Past Medical History: Hyperlipidemia, phantom limb syndrome, he does have a prosthetic leg. Substance Use History: LSD: Started age [age] years old, use daily and heavily with 5-6 hits at a time until he was 17 years old. Methamphetamine: Heavy intravenous use from age [age] years old to at least age [age] years old with some periodic use after that. He denies use for a number of years now. Other: He is tried cocaine once and is used marijuana periodically and occasionally has used alcohol as well impulsively but denies consistent use of any of them. Nicotine: Chronic smoker 1 pack/day of cigarettes. Social History: He is originally from [place] and grew up there is been living in [place] for 4 years now. Currently resides in [facility]. Please see assessment for more details on education. Review of Systems General: Reports: 10 or more systems reviewed and unremarkable except as noted in History and below Mental Status Exam Mental Status Exam He is alert and oriented to person, place, time, and situation. His hygiene is good, dentition is poor. Sensorium is clear. Speech is of a regular rate, rhythm, volume, tone, and prosody. He maintains appropriate eye contact during the examination. There are no psychomotor changes. Mood is a little anxious . Affect is mood congruent and non-labile. Thought process is linear, logical, and goal directed. He denies auditory or visual hallucinations and does not endorse any delusional thinking. He denies suicidal or homicidal thoughts. There is no passive wish of . Memory is intact for recent and remote events. He is cooperative and relates well to me. Insight and judgment were deemed to be good given the recognition of problems and desire for treatment. Assessment/Formulation Assessment and Plan (1) Chronic schizophrenia: Status: Acute Patient is presently asymptomatic. Code(s): F20.9 - Schizophrenia, unspecified (2) Nicotine dependence, unspecified, uncomplicated: Status: Acute Code(s): F17.200 - Nicotine dependence, unspecified, uncomplicated (3) Post-traumatic stress disorder, chronic: Status: Acute Code(s): F43.12 - Post-traumatic stress disorder, chronic Plan - Julius Welch MD: Assessment: 38-year-old male with a history of schizophrenia that was precipitated by heavy substance use of LSD and methamphetamine in addition he has complex PTSD. Plan: Continue Seroquel 600 mg at night Restart Seroquel 100 mg twice daily Start hydroxyzine 50 mg 3 times daily as needed for anxiety He has refills, return to clinic in 4 weeks, recommend case management at his request. Medications: New: quetiapine (Seroquel) 100 mg PO BID 60 tabs 2RF hydroxyzine HCl 50 mg PO TID PRN 90 tabs 2RF anxiety Discontinued: quetiapine Discontinued Reason: Dose Change 25 mg PO Q6H 30 days PRN 60 tabs 1RF Anxiety aspirin Allergy (Verified 10/01/19 09:52) ALGY-Rash ibuprofen Allergy (Verified 10/01/19 09:52) ALGY-Rash iodine Allergy (Verified 10/01/19 09:52) ALGY-Rash Home Medications - Last Reconciled 10/07/19 by Millicent Cano gabapentin 300 mg PO TID 30 days quetiapine 25 mg PO Q6H 30 days PRN quetiapine 600 mg (2 x 300 mg) PO BEDTIME 30 days Patient History Have you had Methicillin-Resistant Staphylococcus Aureus (MRSA)?: No Have you had Clostridium Difficile (C-Diff)?: No Have you had Vancomycin-Resistant Enterococci (VRE)?: No Was patient provided education on preventing infections?: No Items Completed Today Items Completed Today: Annual Risk/Fall Assessment, AIMS, Medications Reconciliation, Provided Education (See Education Log) and Treatment Plan Fall Risk Assessment Fall Risk Assesment Last Completed: 10/07/19 History of any fall within the past year?: Yes Are you taking four or more prescribed medications?: No History of Stroke, Parkinsons, or other neurological conditon?: No Any problems with balance?: Yes Inablility to rise from chair without using arms?: No Suicide Risk Assessment Little interest/pleasure in doing things over last 2 weeks?: Nearly Every Day Been feeling down, depressed, or hopeless over last 2 weeks?: Several Days Have you had suicidal thoughts?: Not At All Do you ever wish you weren't alive anymore?: Not At All Total Score: 4 Patient score 3 or greater or had suicidal thoughts?: Yes Have you wished to be or not wake up?: Yes Have you had any thoughts of killing yourself?: Yes Have you been thinking about how you might do this? [PSY.SIW: No Have you had thoughts with some inent of acting on them? [PS: No Do you have a plan? Do you intend to carry out this plan?: No Have you ever done, started to, or pretended to do anything?: Within The Last 3 Months Nurse Completing Intake Millicent Cano LPN Time Out Time Out: 14:10 Med Services Billing Locations Where is patient being billed?: [facility] [place] New Patient Codes: Office New Pt. LVL 4 Modifier: Telepsych (GT) AIMS Assessment Facial And Oral Movements Muscles Of Facial Expression: 0=None Lips And Perioral Area: 0=None Jaw: 0=None Tongue: 0=None Extremity Movements Upper (Arms, Wrists, Hands, Fingers): 0=None Lower (Legs, Knees, Ankles, Toes): 0=None Trunk Movements Neck, Shoulders, Hips: 0=None Global Judgements Severity Of Abnormal Movements: 0=None Incapacitation Due To Abnormal Movements: 0=None Patient's Awareness Of Abnormal Movements: 0=None Dental Status Current Problems With Teeth And/Or Dentures: No (0) Does Patient Usually Wear Dentures: No (0) Total AIMS Score: 0 Education Record Education Record Treatment Planning and Options: 10/07/19 Individual Trained: Patient Method: Verbal Evaluation of Learning: Verbal Recall of Understanding Food/drug interaction, Safe and effective use of medications, Pain scale, Speak UP brochure, Refill information, Personal Hygiene: 10/07/19 Individual Trained: Patient Method: Printed Material Evaluation of Learning: Verbal Recall of Understanding Symptoms of EPS: 10/07/19 Individual Trained: Patient Method: Return Demonstration Evaluation of Learning: Demonstrated [facility] [place] Individual Treatment Plan Treatment Plan Date treatment plan was originally created:: 10/07/19 Participant: Patient, Medication Provider 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 Assets/Skills: Cooperative, Medication Compliant and Seeks Treatment Obstacles: Limited Income, Chronic Mental Illness and Poor Support System Resources: Friends and [facility] Services: Psychiatric and Outpatient Psychotherapy Diagnosis 1. Diagnosis: Diagnosis: Schizophrenia Meds Start Date:: 10/07/19 State Goal in Collaboration with the Individual Served as identified in the:: Psychiatric Evaluation Individual Served will remain psychiatrically stable by reducing his/her signs and symptoms of mental illness and maximinzing his/her level of independence.: Active Goal Indivual's current signs and symptoms will be reduced through the use of appropriate psychiatric medications.: Active Objective Individual's mental status will improve or remain stable.: Active Objective Individual served will assit medical staff in monitoring side effects through appropriate lab work, monitoring of vital signs and direct observations/reporting.: Active Objective individual served will be able to list medications, uses and benefits.: Active Objective Individual served will take medications as prescribed.: Active Objective Therapeutic Intervention: Medication Management Provider: KEIRY, SECURITY SUPERVISOR and Nurse Frequency: Quarterly Duration: 1 Year, Medication Education/Symptom/Illness Managment Provider: KEIRY, SECURITY SUPERVISOR and Nurse Frequency: Quarterly Duration: 1 Year and Physical Assessment (Vital Signs, AIMS, Weight, ETC.) Provider: KEIRY, SECURITY SUPERVISOR and Nurse Frequency: Quarterly Duration: 1 Year His last visit as below: Dr. Welch 06/29/20 Subjective Subjective: This was a televisit for safety precautions related to coronavirus recommendations, I spent a total of 30 minutes on his case today. He denies alcohol or drug use other than nicotine and says he is smoking less than 1/2 pack/day which is down from a 4 pack or more per day before he started the Chantix. We are going to continue Chantix and he reports no side effects from it and continued benefit with a desire to eliminate smoking completely in the future. We did discuss smoking cessation today for approximately 5 to 10 minutes and he agreed to continue on the Chantix and continue efforts to cutting down and stopping completely. He denies any auditory or visual hallucinations at this time, sleep is 8 to 10 hours a night, and he is fully compliant with meds with no suicidal thoughts, however he has been having trouble with depression and motivation. He says the not severe at this point but we did review risks and benefits of Prozac and after some discussion he said he would rather hold off for a few more weeks to see if things get better. I told him that we will not start a med at this time, he can schedule for 12 weeks for his normal follow-up, but if his mood does not improve or if it worsens over the next 2 to 3 weeks, he can call in and I will start Prozac 20 mg daily. Objective Objective: He is alert and oriented to person, place, time, and situation. His hygiene is unobserved due to being a tele-visit. Sensorium is clear. Speech is of a regular rate, rhythm, volume, tone, and prosody. Eye contact was not observed during the examination due to it being a tele-visit. There are no psychomotor changes reported. Mood is a little down and unmotivated lately . Affect is mood congruent and non-labile. Thought process is linear, logical, and goal directed. He denies auditory or visual hallucinations and does not endorse any delusional thinking. He denies suicidal or homicidal thoughts. There is no passive wish of . Memory is intact for recent and remote events. He is cooperative and relates well to me by phone. Insight and judgment were deemed to be good given the recognition of problems and desire for treatment. Assesment & Plan Assessment: 39-year-old male with schizophrenia and chronic trauma along with nicotine dependence currently on medication assisted treatment for nicotine cessation. Plan: Continue hydroxyzine 50 mg 3 times daily as needed Continue Seroquel 800 mg at night Continue Chantix 1 mg twice daily 3-month refills written on all meds, return to clinic in 12 weeks We also discussed risks and benefits of Prozac today, and if his mood does not improve, he will call in in 2 to 3 weeks and we will initiate Prozac 20 mg daily. He was admitted to the neuropsychiatry unit for definitive treatment of his issues. He says that he went to the emergency room because people were chasing him in cars. He says that has never happened before. He says that he always sees shadows and feels like he is being chased when he stays in the chiu. He says that he tries to stay out of the chiu. He said that he was sure that he was actually being chased recently. He did not think that it was the methamphetamine. He says that he does see things when he does too much methamphetamine but does not think that he did too much this time. He also hears voices chronically. It sounds like the radio. Sometimes he can make out what they say. He says sometimes they tell him to hurt himself. He says that the Seroquel definitely helps him not see the shadows and not hear the voices. He said that he did not feel much less depressed and did call Dr. Welch for a prescription for Prozac. He said that he did not take it all but is not sure why. He did take all of the Seroquel. He says it helps him feel calm and helps him sleep. He is not sure but he thinks he took it for about 2 months. He has not slept well for the last 6 or 7 months. He has been seeing more shadows and hearing more voices. He says he has been self-medicating with methamphetamine and Collin Pete. He says he drinks 2 or 3 pints of Collin Pete every day. He thinks a pint talks about $13. He has been living in his car for the last 6 or 7 months. He was in a assisted but violated their rules by going to town. It was against the rules because of the COVID virus. He was kicked out of the facility and has been living in his car. He said that he was not to go back and see Dr. Welch but because he missed appointments and was kicked out of the program. He has also stopped taking Chantix and his cigarette use has increased up to 1.5 packs/day. He was admitted to a hospital in [place] at 12 March. He said it was because of a psychotic break. He says that they did not keep him long enough to get the methamphetamine out of his system and it was obvious that he would go and start using again. He was discharged on Seroquel 600 mg and Prozac 20 mg. He says that he did not take the medication because he immediately started using methamphetamine. He only used it for a couple of days. He says that his last use was on Sunday. He thinks it is probably most out of his system but he wants to get a urinalysis to make sure. He also talked with the [facility] people today and they are going to working on getting him a place to stay where he can have his dog. He says that he is upset that the emergency room staff put him on a 96-hour hold. He says that he is sure that the people in the emergency room will actually executive kitchen manager. He said that they were the problem and not him. PAST PSYCHIATRIC HISTORY As above SOCIAL HISTORY As above Meds NPU Home Medications Medication Instructions Recorded Confirmed Last Taken Type fluoxetine 20 mg capsule 20 mg PO DAILY #30 cap 07/19/20 03/23/21 Unknown Rx Seroquel 600 mg PO .HS 03/23/21 03/23/21 Unknown History hydroxyzine HCl 100 mg PO BID PRN 03/23/21 03/23/21 Unknown History Allergies Allergy/AdvReac Type Severity Reaction Status Date / Time aspirin Allergy Intermediate ALGY-Rash Verified 06/28/20 12:57 ibuprofen Allergy Intermediate ALGY-Rash Verified 06/28/20 12:57 iodine Allergy Intermediate ALGY-Rash Verified 06/28/20 12:57 PFSH NPU PFSH: Medical History Psychosis Family History Denies family history of CAD (coronary artery disease) Cancer Social History (Updated 03/23/21 @ 19:22 by Karthikeyan Aquino MD) Smoking and tobacco status: never smoked Alcohol intake: never Current gender identity: Male Mental Status Exam MSE Comments: This is a 40-year-old mildly overweight male who appears a little older than his stated age in no acute distress. He is dressed in hospital scrubs and is lying in bed. psychomotor activity is normal. Speech is at a regular rate and rhythm, normal volume, good articulation, not pressured. Alert, oriented X3 Attention and concentration appear to be normal. Memory is intact Mood is not depressed. Affect is euthymic. Thought process is logical and goal-directed. Thought content: Reports auditory and visual hallucinations as above. He believes that the people working in the emergency room were actually police officers. There are no obvious delusions at this morning. He did not seem paranoid about anything other than the 96-hour hold. No current suicidal ideation, and no homicidal ideation. Fund of knowledge is diminished. Insight and judgment appear to be poor. Impulse control is poor. Vitals/I&O/Wt Last Vital Signs Temp 98.2 F 03/24/21 05:32 Pulse 68 03/24/21 05:32 Resp 17 03/24/21 05:32 BP 112/72 03/24/21 05:32 Pulse Ox 97 03/24/21 05:32 Weight last 48 hrs Weight 72.575 kg Data NPU : 03/23/21 10:10 03/23/21 21:40 A&P Assessment and plan (1) Psychosis: Status: Acute Qualifiers: Psychosis type: schizophrenia Schizophrenia type: undifferentiated schizophrenia Qualified Code(s): F20.3 - Undifferentiated schizophrenia (2) Post-traumatic stress disorder, chronic: Status: Acute (3) Nicotine dependence, unspecified, uncomplicated: Status: Acute Qualifiers: Nicotine product type: cigarettes Qualified Code(s): F17.210 - Nicotine dependence, cigarettes, uncomplicated (4) Chronic schizophrenia: Status: Acute (5) Methamphetamine abuse: Status: Acute Additional A&P Information Plan: 1. We will restart Seroquel 800 mg daily and Prozac 20 mg daily. 2. Continue every 15 minute checks for safety. 3. Encourage individual, group and milieu therapies. 4. Encourage sober living treatment after discharge at the highest level of care to which he is willing to commit. 5. We will monitor for safety for himself in the community prior to discharge. 6. we will check a urinalysis tomorrow to determine if methamphetamine is still in his system. Involuntary Hold Information 96 Hour Hold: 96 Hour Involuntary Admission: Yes 96 Hour Hold Ending Date: 03/29/21 96 Hour Hold Ending Time: 21:54 Attestations NPU Medical Necessity Statement*: Inpatient hospitalization is medically necessary and the clinically appropriate intervention at this time. We will initiate medications and make changes as indicated. He will be in the hospital for over 2 midnights. 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
--- NOTE | 2021-03-24 10:53 | NPU.GN ---
[facility] Group Topic:Crisis Plan, Triggers, Coping mechanisms General Mood of Group: Rafa did not attend group today. He is being signed up with [facility] with [facility].
--- NOTE | 2021-03-24 11:17 | PC.PT ---
nurses state no PT needs noted, will contact and re-order if needs arise. senior care amputation pt with w/c for mobility. D/C PT
--- NOTE | 2021-03-24 12:22 | PC.PT ---
no needs for PT noted by nursing staff, pt skilled nursing amputee and uses w/c for mobility. nursing to contact if needs arise. D/C PT
[2021-03-24 14:00] VITALS: RESP 17
--- NOTE | 2021-03-24 14:12 | NPU.GN ---
[facility] 12:30-13:30 Group Group Topic: Negative and Positive Attributes verses Self Imagery General Mood of Group: Rafa did not attend group.
[2021-03-24 20:57] VITALS: RESP 18
[2021-03-24] MEDS: quetiapine 300 mg Tablet 600 MG PO (21:20)
[2021-03-25 05:40] VITALS: BP 98/68; PULSE 85; RESP 17; TEMP 36.9; O2SAT 98
--- NOTE | 2021-03-25 11:13 | DCPLANNER ---
IMM was completed with pt and pt was given a copy of his rights.
[2021-03-25 11:24] LABS: Amphetamines Screen Urine Positive (Negative); Barbiturates Screen Urine Negative (Negative); Benzodiazepines Screen Urine Positive (Negative); Cocaine Screen Urine Negative (Negative); Opiate Screen Urine Negative (Negative); PCP Screen Urine Negative (Negative); THC Screen Urine Positive (Negative)
--- NOTE | 2021-03-25 12:09 | P.NPUDS_ITS ---
Diagnoses at Discharge Discharge Diagnosis (1) Psychosis: Status: Acute Qualifiers: Psychosis type: schizophrenia Schizophrenia type: undifferentiated schizophrenia Qualified Code(s): F20.3 - Undifferentiated schizophrenia (2) Post-traumatic stress disorder, chronic: Status: Acute (3) Nicotine dependence, unspecified, uncomplicated: Status: Acute Qualifiers: Nicotine product type: cigarettes Qualified Code(s): F17.210 - Nicotine dependence, cigarettes, uncomplicated (4) Chronic schizophrenia: Status: Acute Permanent problem details: Patient is presently asymptomatic. (5) Methamphetamine abuse: Status: Acute Reason for Visit Reason for Visit: PSYCH Brief History: History of Present Illness Rafa Brandon is a 40 year old male who was seen in the emergency department with the following report: Time Seen by Provider: 03/23/21 18:52 History of Present Illness: HPI narrative: HPI: [40]yo patient w/ hx of psychosis presenting for delusion. Patient thinks that he is being chased by other people and cannot take care of himself. On arrival, the patient is AAOx3 and cooperative with my evaluation. No focal complaints of chest pain, shortness of breath, palpitations, N/V, focal GI/ complaints. Currently denies SI/HI. No complaints of hallucinations. +meth use recently. He was so agitated that he needed ketamine as well as a B-52 injection. In for a psychiatric evaluation by Dr. Montesinos in 2019 with the following report: [facility] History and Physical Time In: 02:15 Time Out: 02:50 Chief Complaint: I need my medications History of Present Illness: This is a 38-year-old male with a history of schizoaffective disorder and chronic PTSD. He describes a history that is consistent for schizoaffective disorder and that he had 10-12 psychiatric admissions, the first of which was 9 months of length when he was first diagnosed around age [age] years old.. Clear that his symptoms have been largely precipitated by substance use. He tells me he started using LSD when he was 12 years old. He says until age [age] years old he was using acid on a daily basis 5 to 6 years at a time. He tells me that he started using methamphetamine around age [age] years old and used intravenously on a daily basis heavily for at least 5 years. He says his first admission coincided with heavy methamphetamine use, and included auditory hallucinations, paranoid delusions, and suicidal ideations. He tells me that his subsequent 10-12 psychiatric admissions have been up to 2 weeks in length and usually coincide with him going off of medications and decompensating with more paranoid ideations and hallucinations and suicidal thoughts. He tells me that while his symptoms may been precipitated by the methamphetamine use, he has been sober from meth for a number of years and his symptoms have persisted. He denies any recent substance use for at least the last few years. He was recently admitted and restarted on his medications but he says that he does better when he is on 800 mg of Seroquel daily but that it was reduced due to his cholesterol and triglyceride issue. I reviewed the labs and I agree that his triglycerides are very high. However, given the fact that he decompensates rapidly I feel that he really needs to treat his psychotic disorder and that the lipidemia will have to be treated subsequently. Currently he denies any suicidal ideations says he feels a little pressured and stressed but overall is doing well. He recently moved into [facility] which is an assisted living facility and has been there for 2 weeks now and says is going well. He also has a history of trauma growing up that he did not wish to discuss today but he describes having symptoms of nightmares and flashbacks periodically throughout his life. History Past Psychiatric History: 10-12 admissions with the longest being 9 months in length around age [age] years old. He has had 3 suicide attempts by overdose on pills and alcohol combined but denies other self-harm. Family History: Father had bipolar disorder mother had schizophrenia Past Medical History: Hyperlipidemia, phantom limb syndrome, he does have a pro sthetic leg. Substance Use History: LSD: Started age [age] years old, use daily and heavily with 5-6 hits at a time until he was 17 years old. Methamphetamine: Heavy intravenous use from age [age] years old to at least age [age] years old with some periodic use after that. He denies use for a number of years now. Other: He is tried cocaine once and is used marijuana periodically and occasionally has used alcohol as well impulsively but denies consistent use of any of them. Nicotine: Chronic smoker 1 pack/day of cigarettes. Social History: He is originally from [place] and grew up there is been living in [place] for 4 years now. Currently resides in [facility]. Please see assessment for more details on education. Review of Systems General: Reports: 10 or more systems reviewed and unremarkable except as noted in History and below Hospital Course Hospital Course He slowly acclimated to the individual, group and milieu therapies provided. He was continued on his outpatient medications of Seroquel 600 mg and Prozac 20 mg daily. He tolerated these doses and showed steady improvement during his stay. He was able to contract for safety outside hospital prior to discharge. During the hospitalization, patient had routine laboratory studies which were within normal limits except for few outliers. Additionally there was a general medical evaluation which was also within normal limits and revealed no new acute processes. Discharge Summary: At the time of discharge, lethality was denied and psychosis was resolving. Mood and anxiety were well managed. Patient endorsed a plan to follow-up with the aftercare recommendations of the treatment team. Patient was evaluated and deemed to be absent credible lethality, and had achieved the maximum benefit from an inpatient hospitalization, so was discharged. Involuntary Hold Information 96 Hour Hold: 96 Hour Involuntary Admission: Yes 96 Hour Hold Ending Date: 03/29/21 96 Hour Hold Ending Time: 21:54 Mental Status Exam MSE Comments: This is a 40-year-old mildly overweight male who appears a little older than his stated age in no acute distress. He is dressed in hospital scrubs and is poorly groomed. psychomotor activity is normal. Speech is at a regular rate and rhythm, normal volume, good articulation, not pressured. Alert, oriented X3 Attention and concentration appear to be normal. Memory is intact Mood is good. Affect is euthymic. Thought process is logical and goal-directed. Thought content: Reports auditory and visual hallucinations as above. There are no obvious delusions at this morning. No current suicidal ideation, and no homicidal ideation. Fund of knowledge is diminished. Insight and judgment appear to be poor. Impulse control is poor. Cognition: Patient Appearance: Appears Older than Age and Disheveled/Poor Hygiene Level of Consciousness: Awake and Combative Ability to Follow Directions: Poor Patient Orientation (long list): Person, Place and Name Comprehension Ability: Moderate Impairment Hallucination Type: Auditory and Visual Delusion Description: Paranoid Ideation and Persecutory Thought Process: Blocking Affect: Affect Description: Appropriate and Guarded Behavior: Patient Behavior: Appropriate, Cooperative and Withdrawn Speech Pattern: Appropriate and Clear Discharge Data Data Completed and Pending: Labs from last 24 hours 03/25/21 10:15 Urine Opiates Scre en Negative Ur Barbiturates Sc reen Negative Ur Phencyclidine S crn Negative Ur Amphetamines Sc reen Positive H U Benzodiazepines Scrn Positive H Urine Cocaine Scre en Negative U Marijuana (THC) Screen Positive H Vitals: Last Vital Signs Temp 98.4 F 03/25/21 05:40 Pulse 85 03/25/21 05:40 Resp 17 03/25/21 05:40 BP 98/68 03/25/21 05:40 Pulse Ox 98 03/25/21 05:40 Discharge Plan Discharge Patient Disposition: Home Condition: Stable Prescriptions: New quetiapine 300 mg Tablet 800 mg PO BEDTIME Qty: 60 RF: 0 Continued Prozac 20 mg capsule 20 mg PO DAILY 30 Days Qty: 30 RF: 2 Changed hydroxyzine HCl 50 mg tablet 100 mg PO BID PRN (Reason: anxiety) 30 Days Qty: 60 RF: 0 Discontinued quetiapine [Seroquel] 400 mg tablet 600 mg PO .HS RF: 0 Discharge Orders: Discharge Order (Routine); Ordered 03/25/21 Ordered By: Babar Webster Referrals: [facility] [Other] Julius Weclh MD [Physician] - 04/12/21 12:15 pm Discharge Diet: Regular Discharge Activity: Resume usual activity Patient Instructions: Opioid Safety Discharge Attestations NPU Time Spent in Discharge Care*: less than 30 min Specific Discharge Activities: Specific discharge activities: educating patient, discussing with disease case manager rn/social workers/dc planners, documenting/other paperwork and evaluating patient/reviewing data Status at Discharge: Cognitive status at discharge: cognitively intact , Behavioral status at discharge: cooperative , Coding Level of Care Code Acute [facility] DC note Diagnoses Psychosis F20.3 Psychosis type: schizophrenia Schizophrenia type: undifferentiated schizophrenia Post-traumatic stress disorder, chronic F43.12 Nicotine dependence, unspecified, uncomplicated F17.210 Nicotine product type: cigarettes Chronic schizophrenia F20.9 Methamphetamine abuse F15.10
[2021-03-25 12:22] VITALS: BP 98/68; PULSE 85; RESP 17; TEMP 36.9; O2SAT 98
--- NOTE | 2021-03-28 08:39 | PC.OT ---
OT EVALUATION ORDERS RECEIVED. PATIENT DISCHARGED BEFORE EVALUATION COULD BE COMPLETED.
== END 2021-03-25 12:56 | disposition home or self-care (01) | DRG 885 ==
LOC: ER 19:44 → NP 03-24 01:51
PROVIDERS: Psychiatry & Neurology Psychiatry; Admitting Provider Psychiatry & Neurology Psychiatry; Emergency Provider Emergency Medicine; Visit Provider Psychiatry & Neurology Psychiatry
DX: F20.3 Undifferentiated schizophrenia (principal); F43.12 Post-traumatic stress disorder, chronic; Z91.51 Personal history of suicidal behavior; Z81.8 Family history of other mental and behavioral disorders; E78.5 Hyperlipidemia, unspecified; G54.6 Phantom limb syndrome with pain; Z89.619 Acquired absence of unspecified leg above knee; F17.210 Nicotine dependence, cigarettes, uncomplicated; F15.10 Other stimulant abuse, uncomplicated
CPT/HCPCS: 36415; 80048; 80306; 80307; 84439; 84443; 85025; 96372; 99285; 99291; J1200; J1630; J2060; J3490